=== PATIENT | male | born 1965 | race Two or more races ===

== ENCOUNTER 2023-04-06 17:12 | Emergency (ER) | payer OTHER ==
[~2023-04-06] VITALS: Ht 180.3 cm; Wt 106.6 kg
[2023-04-06] MEDS ORDERED: CHILDREN'S ASPI81 MG (17:24)
[2023-04-06] MEDS ORDERED: METROPOLOL (17:24)
[2023-04-06] MEDS ORDERED: ATACAND4 MG (17:24)
[2023-04-06] MEDS ORDERED: EZALLOR SPRINKLE5 MG PO (17:24)
[2023-04-06] MEDS ORDERED: cloNIDine HCL 0.2 MG TABLET PO STA (19:28)
== END 2023-04-06 21:34 | disposition home or self-care (01) ==
LOC: ER 17:12
DX: I10 Essential (primary) hypertension (principal)